=== PATIENT | female | born 1985 | race American Indian/Alaskan Native ===

== ENCOUNTER 2017-04-25 22:39 | Emergency (ER) | payer BC ==
[2017-04-25 23:09] VITALS: BP 108/68; PULSE 94; RESP 16; TEMP 99.2; O2SAT 100; BMI 25.0
[2017-04-25] MEDS ORDERED: Sodium Chloride 0.9% 1,000 ML IV STA (23:19)
--- NOTE | 2017-04-25 23:19 | ED PDOC ---
Arrival/HPI - General Chief Complaint: ENT Problem Time Seen by Provider: 04/25/17 23:08 Historian: Patient - History of Present Illness Narrative History of Present Illness (Text): 04/25/17 23:16 31 year old female, whose past medical history includes sickle cell anemia, who presents to the Emergency department complaining of sore throat for the past 4 days. Patient reports associated muffled voice, tonsilar swelling, and left ear pain. Patient states she has experienced similar symptoms in the past and has a history of tonsilar abscess which was drained 10 years ago. Patient denies any fever, chills, shortness of breath, cough, nausea, vomiting, headache, dizziness , neck pain, or any other complaints. Patient states she has been taking Ibuprofen at home for pain. Time/Duration: < week (4 days) Symptom Onset: Gradual Symptom Course: Unchanged Activities at Onset: Rest, Light Context: Home Past Medical History - Provider Review Nursing Documentation Reviewed: Yes - Cardiac Hx Cardiac Disorders: No - Pulmonary Hx Respiratory Disorders: No - Neurological Hx Neurological Disorder: No - HEENT Hx HEENT Disorder: No - Renal Hx Renal Disorder: No - Endocrine/Metabolic Hx Endocrine Disorders: No - Hematological/Oncological Hx Sickle Cell Disease: Yes - Integumentary Hx Dermatological Disorder: No - Musculoskeletal/Rheumatological Hx Musculoskeletal Disorders: No - Gastrointestinal Hx Gastrointestinal Disorders: No - Genitourinary/Gynecological Hx Genitourinary Disorders: No - Psychiatric Hx Psychophysiologic Disorder: No Hx Substance Use: No - Surgical History Hx Cholecystectomy: Yes - Anesthesia Hx Anesthesia: Yes Family/Social History - Physician Review Nursing Documentation Reviewed: Yes Family/Social History: Unknown Family HX Smoking Status: Never Smoked Hx Alcohol Use: No Hx Substance Use: No Allergies/Home Meds Allergies/Adverse Reactions: Allergies codeine Allergy (Verified 04/25/17 23:02) RASH Home Medications: Home Meds Medication Instructions Recorded Confirmed Folic Acid 1 mg PO DAILY 04/25/17 04/25/17 Hydroxyurea [Hydrea] 500 mg PO BID 04/25/17 04/25/17 Review of Systems - Physician Review All systems were reviewed & negative as marked: Yes - Review of Systems Constitutional: Normal. absent: Fevers Eyes: Normal ENT: Voice Changes (+muffled voice), Sore Throat, Other (+tonsil swelling) Respiratory: Normal. absent: SOB, Cough Cardiovascular: Normal. absent: Chest Pain Gastrointestinal: Normal. absent: Abdominal Pain, Diarrhea, Nausea, Vomiting Genitourinary Female: Normal Musculoskeletal: Normal. absent: Back Pain, Neck Pain Skin: Normal Neurological: Normal. absent: Headache, Dizziness Endocrine: Normal Hemo/Lymphatic: Normal Psychiatric: Normal Physical Exam Vital Signs Reviewed: Yes Vital Signs Temp Pulse Resp BP Pulse Ox 04/25/17 23:04 99.2 F 94 H 16 108/68 100 04/25/17 23:01 99.2 F 94 H 16 108/68 100 Temperature: Afebrile Blood Pressure: Normal Pulse: Regular Respiratory Rate: Normal Appearance: Positive for: Well-Appearing, Non-Toxic, Comfortable Pain Distress: None Mental Status: Positive for: Alert and Oriented X 3 - Systems Exam Head: Present: Atraumatic, Normocephalic Pupils: Present: PERRL Extroacular Muscles: Present: EOMI Conjunctiva: Present: Normal Ears: Present: Normal, NORMAL TM, Normal Canal. No: Erythema, TM Bulging, Fluid , TM Perf Mouth: Present: Moist Mucous Membranes, Normal Lips, Normal Tounge, Normal Teeth. No: Drooling, Trismus Pharnyx: Present: Peritonsilar Swelling (Large left peritonsilar swelling with uvular deviation), Uvular Deviation, Muffled/Hoarse Voice (Muffled voice, speaking full sentences), Other (Tolerating secretions). No: EXUDATE, Strider Neck: Present: Normal Range of Motion. No: Meningeal Signs, MIDLINE TENDERNESS , Paraspinal Tenderness Respiratory/Chest: Present: Clear to Auscultation, Good Air Exchange. No: Respiratory Distress, Accessory Muscle Use, Wheezes Cardiovascular: Present: Regular Rate and Rhythm Abdomen: No: Tenderness Upper Extremity: Present: Normal Inspection Neurological: Present: GCS=15 Skin: Present: Warm, Dry, Normal Color. No: Rashes Psychiatric: Present: Alert, Oriented x 3 Medical Decision Making ED Course and Treatment: 04/25/17 23:16 Impression: 31 year old female complaining of sore throat, muffled voice, tonsilar swelling , and left ear pain for the last 4 days. Plan: -- Solu-medrol -- IV fluids -- clindamycin IV -- Reassess and disposition Progress Notes: 04/25/17 23:16 ENT drawer in stitch bonding machine paged. 04/25/17 23:[address] Love, ENT drawer in stitch bonding machine, who is aware and agrees with plan. Will send in ENT residents to evaluate pt in Emergency room IV fluids, Clindamycin, and Solu-medrol ordered. 04/25/17 23:50 ENT resident, Dr. Paige, to ER to evaluate pt. 04/26/17 00:52 pt had needle aspiration of peritonsillar abscess at bedside. pt feeling better. pt to be d/c'd with ENT f/u. percocet, clindamycin, motrin, and prednisone. pt feeling better. tolerating secretions.states she is ready to go home. pt states she has taken percocet in the past without any allergy/rash. advised f/u with ENT. advised immediate return if symptoms worsen,persist or if new symptoms develop. Patient verbalizes understanding of discharge instructions and need for immediate followup. all aspects of this case were discussed the attending of record. Impression: peritonsillar abscess Motrin every 6 hours as needed for pain Percocet 1 tablet every 6 hours as needed for moderate to severe pain: May cause drowsiness Clindamycin 3 times daily 7 days Prednisone daily 4 days Follow-up with the ENT specialist within the next 2 days Return immediately if symptoms worsen persist or if new concerning symptoms develop - Medication Orders Current Medication Orders: Discontinued Medications Sodium Chloride (Sodium Chloride 0.9%) 1,000 mls @ 999 mls/hr IV .Q1H1M STA Stop: 04/26/17 00:19 Last Admin: 04/25/17 23:45 Dose: 999 mls/hr Clindamycin Phosphate 600 mg/ (Sodium Chloride) 54 mls @ 108 mls/hr IVPB STAT STA PRN Reason: Protocol Stop: 04/25/17 23:53 Last Admin: 04/25/17 23:56 Dose: 108 mls/hr Methylprednisolone (Solu-Medrol) 125 mg IVP STAT STA Stop: 04/25/17 23:20 Last Admin: 04/25/17 23:46 Dose: 125 mg Oxycodone/Acetaminophen (Percocet 5/325 Mg Tab) 1 tab PO STAT STA Stop: 04/26/17 00:53 - Scribe Statement The provider has reviewed the documentation as recorded by the Wilbur Lamb Provider Scribe Attestation: All medical record entries made by the Scribe were at my direction and personally dictated by me. I have reviewed the chart and agree that the record accurately reflects my personal performance of the history, physical exam, medical decision making, and the department course for this patient. I have also personally directed, reviewed, and agree with the discharge instructions and disposition. Disposition/Present on Arrival - Present on Arrival Any Indicators Present on Arrival: No History of DVT/PE: No History of Uncontrolled Diabetes: No Urinary Catheter: No History of Decub. Ulcer: No History Surgical Site Infection Following: None - Disposition Have Diagnosis and Disposition been Completed?: Yes Diagnosis: Peritonsillar abscess Disposition: HOME/ ROUTINE Disposition Time: 23:56 Patient Plan: Discharge Patient Problems: Current Active Problems Problem Status Onset Peritonsillar abscess Acute Condition: GOOD Discharge Instructions (ExitCare): Peritonsillar Abscess (ED) Additional Instructions: Motrin every 6 hours as needed for pain Percocet 1 tablet every 6 hours as needed for moderate to severe pain: May cause drowsiness Clindamycin 3 times daily 7 days Prednisone daily 4 days Follow-up with the ENT specialist within the next 2 days Return immediately if symptoms worsen persist or if new concerning symptoms develop [facility] [address] [facility], [place] [address] Prescriptions: Clindamycin [Cleocin] 300 mg PO TID #21 cap Ibuprofen [Motrin] 600 mg PO Q6H PRN #20 tab PRN Reason: pain/fever reduction oxyCODONE/Acetaminophen [Percocet 5/325 mg Tab] 1 tab PO Q6H PRN #6 tab PRN Reason: moderate to severe pain predniSONE [predniSONE Tab] 3 tab PO DAILY #12 tab Referrals: John Love DO [Staff Provider] - Follow up with primary Forms: [employer] (Polish), WORK NOTE
[2017-04-26] MEDS ORDERED: Oxycodone/Acetaminophen 5/325 mg Tab PO STA (00:52)
--- NOTE | 2017-04-26 19:20 | CON ---
DATE: 04/26/2017 CHIEF COMPLAINT: Sore throat. HISTORY OF PRESENT ILLNESS: This is a 31-year-old female with a past medical history of sickle cell anemia who presented to the ER on 04/26/2017 at 12 a.m. with sore throat mostly on the left side. The patient states that she has a history of numerous infections positive for strep and also has a history of peritonsillar abscess 10 years ago, which was drained via incision and drainage. The patient reports that two days ago her symptoms of sore throat began and progressively worsened to the point where she could not swallow her own saliva. She also complained that the pian radiates to her left ear. She has difficulty drinking and eating food. She denies any sick contact. She denies any hearing loss or otorrhea from the left ear or from the right ear. REVIEW OF SYSTEMS: As per HPI. PAST MEDICAL HISTORY: Sickle cell anemia. PAST SURGICAL HISTORY: Denies. ALLERGIES: FOR WHICH SHE STARTS VOMITING. SOCIAL HISTORY: She denies smoking, social drinking and any illicit drug use. PHYSICAL EXAMINATION: GENERAL: The patient is in no acute distress, lying on bed. HEENT: Her oral cavity is moist without any lesions or masses, but the posterior oropharynx is appreciated, there is fullness of the left tonsillar region. Left tonsillar is medialized to the right with a uvula deviated to the right side. She has fullness of the anterior pillar of the tonsil. No erythema or exudate is appreciated. Her left ear canal is patent without any masses without any cerumen. Tympanic membrane is intact without any perforations. The right ear canal is patent without any cerumen impaction. The right tympanic membrane is intact without any effusions. PROCEDURES: A 0.5 mL of 1% Lidocaine with epinephrine was injected into the left tonsillar fossa. The patient's consent was achieved before the procedure began. A 0.5 mL of 1% Lidocaine and epinephrine was injected into the patient's left tonsillar anterior fossa to numb. The patient was instructed to raise her hand if she feels any pain and not to move around. An 18 gauge needle was then introduced on a 10 mL syringe into the superior pole into the left anterior part of the tonsillar fossa and aspiration of a needle was tried to achieve. No pus was expressed. Another stick was tried in the middle aspect of the anterior tonsillar fossa and no pus was appreciated. At this point, it was decided to not progress anymore with the procedure and that the oxygen therapy take as a course. ASSESSMENT AND PLAN: This is a 31-year-old female with a past medical history of sickle cell anemia who presented to the ER with a sore throat likely due to a left-sided peritonsillar abscess, aspiration with the needle was carried out, which did not lead to any expression of the pus. The patient was told to take clindamycin for 10 days along with prednisone and Percocet for pain relief. The patient is not a local of [place] and was told to follow up with her local ear, nose and throat surgeon in a week or two if symptoms do not resolve and was recommended soft diet and to avoid hard and crunchy food and liquids were encouraged. The patient was also told that a tonsillectomy would be indicated given the fact that she has had AGILE TEST LEAD in the past and this is the second episode of AGILE TEST LEAD. The plan was discussed with the patient and the ER attending. John Love DO
== END 2017-04-26 01:20 | disposition home or self-care (01) ==
LOC: ED 22:39
DX: J36 Peritonsillar abscess (principal)
CPT/HCPCS: 96374; 99283; J2930; J7040

== ENCOUNTER 2017-04-29 03:04 | Emergency (ER) | payer BC ==
[2017-04-29 03:15] VITALS: BMI 25.8
[2017-04-29] MEDS ORDERED: DiphenhydrAMINE 50 mg/ml Inj IVP ONE ×3 (03:18→06:25)
[2017-04-29] MEDS ORDERED: HYDROmorphone 2 mg/ml ISec IVP STA ×2 (03:18→04:50)
--- NOTE | 2017-04-29 03:19 | ED PDOC ---
Arrival/HPI - General Time Seen by Provider: 04/29/17 03:12 Historian: Patient - History of Present Illness Narrative History of Present Illness (Text): 04/29/17 03:15 Tenisha Kenyon is a 31 year old female, whose past medical history includes sickle cell anemia, who presents to the Emergency department complaining of bilateral knee pain, back pain, and nausea for the past few hour. Patient states symptoms are consistent with previous episodes of sickle cell crisis. Patient denies any fever, chills, chest pain, shortness of breath, vomiting, diarrhea, urinary symptoms, neck pain, headache, dizziness, or any other complaints. Time/Duration: 1-3 hours Symptom Onset: Gradual Symptom Course: Unchanged Activities at Onset: Rest, Light Context: Home Past Medical History - Provider Review Nursing Documentation Reviewed: Yes - Cardiac Hx Cardiac Disorders: No - Pulmonary Hx Respiratory Disorders: No - Neurological Hx Neurological Disorder: No - HEENT Hx HEENT Disorder: No - Renal Hx Renal Disorder: No - Endocrine/Metabolic Hx Endocrine Disorders: No - Hematological/Oncological Hx Sickle Cell Disease: Yes - Integumentary Hx Dermatological Disorder: No - Musculoskeletal/Rheumatological Hx Musculoskeletal Disorders: No - Gastrointestinal Hx Gastrointestinal Disorders: No - Genitourinary/Gynecological Hx Genitourinary Disorders: No - Psychiatric Hx Psychophysiologic Disorder: No Hx Substance Use: No - Surgical History Hx Cholecystectomy: Yes - Anesthesia Hx Anesthesia: Yes Family/Social History - Physician Review Nursing Documentation Reviewed: Yes Family/Social History: Unknown Family HX Smoking Status: Never Smoked Hx Alcohol Use: No Hx Substance Use: No Allergies/Home Meds Allergies/Adverse Reactions: Allergies codeine Allergy (Verified 04/29/17 03:14) RASH Home Medications: Home Meds Medication Instructions Recorded Confirmed Folic Acid 1 mg PO DAILY 04/25/17 04/29/17 Hydroxyurea [Hydrea] 500 mg PO BID 04/25/17 04/29/17 Review of Systems - Physician Review All systems were reviewed & negative as marked: Yes - Review of Systems Constitutional: Normal. absent: Fevers Eyes: Normal ENT: Normal Respiratory: Normal. absent: SOB, Cough Cardiovascular: Normal. absent: Chest Pain Gastrointestinal: Nausea. absent: Diarrhea, Vomiting Genitourinary Female: Normal. absent: Dysuria, Frequency, Hematuria, Urine Output Changes Musculoskeletal: Arthralgias (+bilateral knee pain), Back Pain Skin: Normal. absent: Rash Neurological: Normal. absent: Headache, Dizziness Endocrine: Normal Hemo/Lymphatic: Normal Psychiatric: Normal Physical Exam Vital Signs Reviewed: Yes Vital Signs Temp Pulse Resp BP Pulse Ox 04/29/17 07:15 65 18 110/67 100 04/29/17 06:37 67 18 108/65 100 04/29/17 05:05 65 18 109/64 100 04/29/17 03:19 97.9 F 62 16 112/44 L 100 Temperature: Afebrile Blood Pressure: Normal Pulse: Regular Respiratory Rate: Normal Appearance: Positive for: Well-Appearing, Non-Toxic, Comfortable Pain Distress: None Mental Status: Positive for: Alert and Oriented X 3 - Systems Exam Head: Present: Atraumatic, Normocephalic Pupils: Present: PERRL Extroacular Muscles: Present: EOMI Conjunctiva: Present: Normal Mouth: Present: Moist Mucous Membranes Neck: Present: Normal Range of Motion. No: Meningeal Signs, MIDLINE TENDERNESS , Paraspinal Tenderness Respiratory/Chest: Present: Clear to Auscultation, Good Air Exchange. No: Respiratory Distress, Accessory Muscle Use Cardiovascular: Present: Regular Rate and Rhythm, Normal S1, S2. No: Murmurs Abdomen: Present: Normal Bowel Sounds. No: Tenderness, Distention, Peritoneal Signs Back: Present: Normal Inspection. No: CVA Tenderness, Midline Tenderness, Paraspinal Tenderness Upper Extremity: Present: Normal Inspection. No: Cyanosis, Edema Lower Extremity: Present: Normal Inspection. No: Edema Neurological: Present: GCS=15, CN II-XII Intact, Speech Normal Skin: Present: Warm, Dry, Normal Color. No: Rashes Psychiatric: Present: Alert, Oriented x 3, Normal Insight, Normal Concentration Medical Decision Making ED Course and Treatment: 04/29/17 03:15 Impression: 31 year old female complaining of bilateral knee pain, back pain, and nausea for past few hours. Plan: -- EKG -- CXR -- Labs, reticulocyte count, troponin -- IV fluids -- Zofran -- Dilaudid -- Benadryl -- Reassess and disposition Prior Visits: Notes and results from previous visits were reviewed. On 04/25/2017, pt was seen in the Emergency department for a tonsilar abscess. Abscess was drained by ENT, pt placed on antibiotics, and discharged home. Progress Notes: 04/29/17 03:47 Reviewed EKG, NSR at 62 bpm. Sinus arrhythmia. Non-specific ST/T wave changes. 04/29/17 04:31 Reviewed radiology, Chest X-ray shows mild cardiomegaly. - Lab Interpretations Lab Results: 04/29/17 03:30 04/29/17 03:30 Lab Results 04/29/17 03:30: Retic Count 4.41 H 04/29/17 03:30: Sodium 141, Potassium 3.5 L, Chloride 104, Carbon Dioxide 23, Anion Gap 18, BUN 8, Creatinine 0.5, Est GFR ( Amer) > 60, Est GFR (Non- Af Amer) > 60, Random Glucose 132 H, Calcium 9.2, Total Bilirubin 1.1, AST 45 H , ALT 40, Alkaline Phosphatase 107, Troponin I < 0.01, Total Protein 8.4 H, Albumin 4.1, Globulin 4.3, Albumin/Globulin Ratio 1.0 L 04/29/17 03:30: WBC 19.8 H, RBC 2.15 L, Hgb 7.6 L, Hct 22.3 L, MCV 103.7, MCH 35.3 H, MCHC 34.1, RDW 16.7 H, Plt Count 505 H, MPV 9.1, Gran % Postmaster Relief, Lymph % ( Auto) Postmaster Relief, [place] % (Auto) Postmaster Relief, Eos % (Auto) Postmaster Relief, Baso % (Auto) Postmaster Relief, Gran # Postmaster Relief, Lymph # Postmaster Relief, [place] # Postmaster Relief, Eos # Postmaster Relief, Baso # Postmaster Relief, Neutrophils % (Manual) 77 H, Band Neutrophils % 6 H, Lymphocytes % (Manual) 7 L, Monocytes % (Manual) 5, Eosinophils % (Manual) 1, Metamyelocytes % 2, Myelocytes % 2, Hypochromasia 2+, Poikilocytosis (manual 1+, Anisocytosis (manual) 1+, Macrocytosis (manual) 1+, Target Cells Slight, Ovalocytes Slight - RAD Interpretation Radiology Orders: 04/29/17 03:18 CHEST PORTABLE [RAD] Stat - Medication Orders Current Medication Orders: Discontinued Medications Diphenhydramine HCl (Benadryl) 25 mg IVP ONCE ONE Stop: 04/29/17 03:19 Last Admin: 04/29/17 03:30 Dose: 25 mg Diphenhydramine HCl (Benadryl) 25 mg IVP ONCE ONE Stop: 04/29/17 04:51 Last Admin: 04/29/17 05:17 Dose: 25 mg Diphenhydramine HCl (Benadryl) 25 mg IVP ONCE ONE Stop: 04/29/17 06:26 Last Admin: 04/29/17 06:52 Dose: 25 mg Hydromorphone HCl (Dilaudid) 2 mg IVP STAT STA Stop: 04/29/17 03:19 Last Admin: 04/29/17 03:30 Dose: 2 mg Hydromorphone HCl (Dilaudid) 2 mg IVP STAT STA Stop: 04/29/17 04:51 Last Admin: 04/29/17 05:17 Dose: 2 mg Hydromorphone HCl (Dilaudid) 1 mg IVP STAT STA Stop: 04/29/17 06:26 Last Admin: 04/29/17 06:52 Dose: 1 mg Sodium Chloride (Sodium Chloride 0.9%) 1,000 mls @ 150 mls/hr IV .Q6H40M BOB Last Admin: 04/29/17 03:44 Dose: 150 mls/hr Ondansetron HCl (Zofran Inj) 4 mg IVP STAT STA Stop: 04/29/17 03:19 Last Admin: 04/29/17 03:30 Dose: 4 mg Ondansetron HCl (Zofran Inj) 4 mg IVP STAT STA Stop: 04/29/17 04:51 Last Admin: 04/29/17 05:16 Dose: 4 mg - Ana Mariaibe Statement The provider has reviewed the documentation as recorded by the Wilbur Lamb Provider Scribe Attestation: All medical record entries made by the Wilbur were at my direction and personally dictated by me. I have reviewed the chart and agree that the record accurately reflects my personal performance of the history, physical exam, medical decision making, and the department course for this patient. I have also personally directed, reviewed, and agree with the discharge instructions and disposition. Disposition/Present on Arrival - Present on Arrival Any Indicators Present on Arrival: No History of DVT/PE: No History of Uncontrolled Diabetes: No Urinary Catheter: No History Surgical Site Infection Following: None - Disposition Have Diagnosis and Disposition been Completed?: Yes Diagnosis: Sickle cell anemia with crisis Disposition: HOME/ ROUTINE Disposition Time: 06:30 Condition: GOOD Discharge Instructions (ExitCare): Sickle Cell Crisis (ED) Prescriptions: HYDROmorphone [Dilaudid] 1 mg PO QID #10 tab Forms: [employer] (Kyrgyz)
[2017-04-29 03:26] VITALS: TEMP 97.9; O2SAT 100
[2017-04-29] MEDS ORDERED: Sodium Chloride 0.9% 1,000 ML IV SCH (03:30)
[2017-04-29 04:09] LABS: MEAN CELL VOLUME 103.7 fL (80.0-105.0); MEAN CORPUSCULAR HEMOGLOBIN 35.3 pg (25.0-35.0); MEAN CORPUSCULAR HGB CONC 34.1 g/dl (31.0-37.0); MEAN PLATELET VOLUME 9.1 fl (7.0-11.0); PLATELET COUNT 505 10^3/uL (120.0-450.0); RBC 2.15 10^6/uL (3.5-6.1); RED CELL DISTRIBUTION WIDTH 16.7 % (11.5-14.5); WHITE BLOOD COUNT 19.8 10^3/ul (4.5-11.0)
[2017-04-29 04:18] LABS: ALBUMIN 4.1 g/dL (3.0-4.8); ALT/SGPT 40 U/L (7-56); AST/SGOT 45 U/L (15-39); BLOOD UREA NITROGEN 8 mg/dL (7-21); CALCIUM 9.2 mg/dL (8.4-10.5); GFR AFRICAN-AMERICAN > 60; GFR NON-AFRICAN AMERICAN > 60
[2017-04-29 04:20] LABS: HEMOGLOBIN 7.6 gm/dL (12.0-16.0)
[2017-04-29 04:34] LABS: TROPONIN I < 0.01 ng/mL
[2017-04-29 04:50] LABS: BAND 6 % (0-2); EOSINOPHIL 1 % (0.0-3.0); LYMPHOCYTE 7 % (22.0-35.0); MONOCYTE 5 % (1.0-6.0); NEUTROPHIL 77 % (50.0-70.0)
[2017-04-29 04:52] LABS: ANISOCYTOSIS 1+; HYPOCHROMIA 2+; METAMYELOCYTE 2 %; MYELOCYTE 2 %; POIKILOCYTOSIS 1+
[2017-04-29 04:56] LABS: TARGET CELLS SLIGHT
[2017-04-29 04:58] LABS: OVALOCYTES SLIGHT
[2017-04-29 05:20] VITALS: RESP 18
[2017-04-29] MEDS ORDERED: HYDROmorphone 1 mg/ml ISec IVP STA (06:25)
[2017-04-29 07:16] VITALS: BP 110/67; PULSE 65
--- NOTE | 2017-04-29 10:04 | CARD ---
APPROVED REPORT EKG Measurement Heart [id number] <Conclusion> Sinus rhythm with APC Voltage criteria for left ventricular hypertrophy Early repolarization
--- NOTE | 2017-04-29 12:15 | RAD ---
HISTORY: sickle cell COMPARISON: No prior. FINDINGS: LUNGS: No active pulmonary disease. PLEURA: No significant pleural effusion identified, no pneumothorax apparent. CARDIOVASCULAR: Mild cardiomegaly. Mild vascular congestion OSSEOUS STRUCTURES: No significant abnormalities. VISUALIZED UPPER ABDOMEN: Normal. OTHER FINDINGS: None. IMPRESSION: Mild cardiomegaly and mild vascular congestion
== END 2017-04-29 07:15 | disposition home or self-care (01) ==
LOC: ED 03:04
DX: D57.00 Hb-SS disease with crisis, unspecified (principal)
CPT/HCPCS: 71010; 80053; 84484; 85025; 85044; 93005; 96374; 96375; 96376; 99285; J1170; J1200; J2405; J7040